=== PATIENT | male | born 1965 | race African-American/Black ===

== ENCOUNTER 2019-11-14 15:25 | Emergency (ER) | payer OTHER ==
[~2019-11-14] VITALS: Ht 182.9 cm; Wt 90.0 kg
[2019-11-14] MEDS ORDERED: SODIUM CHLORIDE 0.9% 1,000 ML IV ONE (15:47)
[2019-11-14 16:16] LABS: EOSINOPHILS % 1.2 % (0.0-5.0); HEMATOCRIT. 42.2 % (42.0-52.0); HEMOGLOBIN. 14.5 g/dL (14.0-18.0); LYMPHOCYTES % 29.6 % (20.0-50.0); MEAN CORPUSCULAR HEMOGLOBIN 33.9 pg (28.0-32.0); MEAN CORPUSCULAR VOLUME 98.8 fL (80.0-94.0); MEAN PLATELET VOLUME 9.3 fl (7.4-10.4); NEUTROPHILS % 60.2 % (40.0-76.0); PLATELET 192 x1000/uL (130-400); RED BLOOD CELL COUNT 4.27 mill/uL (4.7-6.1); RED CELL DISTRIBUTION WIDTH 14.2 % (11.6-14.6)
[2019-11-14 16:19] LABS: CHLORIDE 110 mEq/L (98-107)
[2019-11-14 16:24] LABS: D-DIMER 1.64 mg/L FEU (<0.50); PARTIAL THROMBOPLASTIN TIME 20.2 sec (23.4-31.0); PROTHROMBIN TIME 10.5 sec (9.6-11.0)
[2019-11-14] MEDS ORDERED: ASPIRIN 81MG TABLET PO ONE (17:00)
[2019-11-14 19:13] VITALS: BP 141/94
== END 2019-11-14 19:30 | disposition short-term general hospital (02) ==
LOC: ER 15:25
DX: R55 Syncope and collapse (principal); I10 Essential (primary) hypertension; J45.909 Unspecified asthma, uncomplicated
CPT/HCPCS: 36415; 71045; 78582; 80053; 83880; 84484; 85025; 85379; 85610; 85730; 93005; 93970; 96360; 99285; A9540; A9558; J7030; Z7610